=== PATIENT | female | born 1985 | race Caucasian/White ===

== ENCOUNTER 2018-10-08 09:51 | Emergency (ER) ==
[2018-10-08 10:02] VITALS: BP 144/79; TEMP 101.3; BMI 28.1
--- NOTE | 2018-10-08 10:10 | ED.PDOC ---
General ED Provider: Dr. MESSI KUMAR Chief Complaint: Respiratory Complaint Stated Complaint: Started with cough 3 weeks ago, coughing so hard she would vomit. fever and diarrhea. Earaches and headaches and body aches and sore throat Time Seen by Physician: 10:05 Mode of Arrival: Walk-In Information Source: Patient Exam Limitations: No limitations Referred to ED by: Other (family) Nursing and Triage Documentation Reviewed and Agree: Yes Does patient meet sepsis criteria?: No System Inflammatory Response Syndrome: Not Applicable Sepsis Protocol: For patient's 13 years and over: Temp is 96.8 and below OR 101 and greater Pulse >90 BPM Resp >20/minute Acutely Altered Mental Status Are patient's symptoms suggestive of a new infection, such as: -Pneumonia -Skin, Soft Tissue -Endocarditis -UTI -Bone, Joint Infection -Implantable Device -Acute Abdominal Infection -Wound Infection -Meningitis -Blood Stream Catheter Infection -Unknown Respiratory Complaint Exam - Respiratory Complaint/Exam Onset/Duration: 3 days Symptoms Are: Still present, Worse Timing: Intermittent Initial Severity: Mild Current Severity: Moderate Location: Nose, Throat, Chest Character: Reports: Productive cough (scanty yellow sputum production ) Aggravating: Reports: URI Alleviating: Reports: None Associated Signs and Symptoms: Reports: URI, Nasal congestion, Sore throat, Decreased oral intake Related History: Denies: Similar episode History of Healthcare-Acquired Pneumonia: No Related Surgical History: Reports: None Pulmonary Embolism Risk Factors: None Cardiac Risk Factors: Reports: None Pseudomonas Risk Factors: Reports: None Tuberculosis Risk Factors: Reports: None Status Asthmaticus Risk Factors: Reports: None Home Oxygen Use: No Recent Stress Test: No Recent Echo/LV Function: No Current Antibiotic Use: No Current Asthma Medication Use: Yes Respiratory Distress: None Inadequate Respiratory Effort: No Dysphagia Present: No Stridor Present: No JVD Present: No Accessory Muscle Use: No Retractions: Not Present Diminished Breath Sounds: No Sinus Tenderness: None Grunting Respirations: No Kussmaul Respirations: No Differential Diagnoses: URI, Influenza, Other Quality Indicators For Pneumonia: SpO2 assessed Review of Systems - Review Of Systems Constitutional: Reports: Malaise Eyes: Reports: No symptoms Ears, Nose, Mouth, Throat: Reports: Ear pain, Throat pain Respiratory: Reports: No symptoms Cardiac: Reports: No symptoms GI: Reports: No symptoms : Reports: No symptoms Musculoskeletal: Reports: No symptoms Skin: Reports: No symptoms Neurological: Reports: No symptoms Endocrine: Reports: No symptoms Hematologic/Lymphatic: Reports: No symptoms All Other Systems: Reviewed and Negative Past Medical History - Past Medical History Previously Healthy: Yes Endocrine: Reports: None Cardiovascular: Reports: None Respiratory: Reports: None Hematological: Reports: None Gastrointestinal: Reports: None Genitourinary: Reports: None Neuro/Psych: Reports: None Musculoskeletal: Reports: None Cancer: Reports: None Last Menstrual Period: 1 day ago. Has IUD in place -No chance of - Surgical History General Surgical History: Reports: None - Family History Family History: Reports: None - Social History Smoking Status: Current every day smoker, Light tobacco smoker Hx Substance Use: No Alcohol Screening: None Physical Exam - Physical Exam Appearance: Ill-appearing, No pain distress, Well-nourished Ill-appearing: Mild Pain Distress: None Eyes: MORRO, EOMI, Conjunctiva clear ENT: Ears normal, Nose normal, Oropharynx normal, Erythema Respiratory: Airway patent, Breath sounds clear, Breath sounds equal, Respirations nonlabored Cardiovascular: RRR, Pulses normal, No rub, No murmur GI/: Soft, Nontender, No masses, Bowel sounds normal, No Organomegaly Musculoskeletal: Normal strength, ROM intact, No edema, No calf tenderness Skin: Warm, Dry, Normal color Neurological: Sensation intact, Motor intact, Reflexes intact, Cranial nerves intact, Alert, Oriented Psychiatric: Affect appropriate, Mood appropriate Critical Care Note - Critical Care Note Total Time (mins): 0 Course - Course Hematology/Chemistry: 10/08/18 10:50 10/08/18 10:50 Orders, Labs, Meds: Lab Review 10/08/18 10/08/18 10/08/18 10:20 10:50 10:50 WBC 9.51 RBC 4.59 Hgb 14.1 Hct 41.0 MCV 89.3 MCH 30.7 MCHC 34.4 RDW Coeff of Yasmeen 12.6 Plt Count 205 Immature Gran % (Auto) 0.3 Neut % (Auto) 80.5 Lymph % (Auto) 12.8 [place] % (Auto) 5.5 Eos % (Auto) 0.7 Baso % (Auto) 0.2 Immature Gran # (Auto) 0.0 Neut # (Auto) 7.7 H Lymph # (Auto) 1.2 [place] # (Auto) 0.5 Eos # (Auto) 0.1 Baso # (Auto) 0.0 Sodium 138.9 Potassium 3.65 Chloride 103.4 Carbon Dioxide 25.4 Anion Gap 13.75 BUN 10.6 Creatinine 0.62 Estimated GFR (MDRD) 112.00 BUN/Creatinine Ratio 17.09 Glucose 134.6 H Calcium 8.92 Total Bilirubin 0.47 AST 21.5 ALT 17.4 Alkaline Phosphatase 63.7 Total Protein 8.06 Albumin 4.80 Globulin 3.26 Albumin/Globulin Ratio 1.47 Amylase 62.2 Lipase 53.8 Urine Color Urine Clarity Urine pH Ur Specific [place] Urine Protein Urine Glucose (UA) Urine Ketones Urine Blood Urine Nitrite Urine Bilirubin Urine Urobilinogen Ur Leukocyte Esterase Urine Microscopic RBC Ur Squamous Epith Cells Urine Starch Urine Mucus Influ A Molecular Assay Negative by naat Influ B Molecular Assay Negative by naat 10/08/18 10:55 WBC RBC Hgb Hct MCV MCH MCHC RDW Coeff of Yasmeen Plt Count Immature Gran % (Auto) Neut % (Auto) Lymph % (Auto) [place] % (Auto) Eos % (Auto) Baso % (Auto) Immature Gran # (Auto) Neut # (Auto) Lymph # (Auto) [place] # (Auto) Eos # (Auto) Baso # (Auto) Sodium Potassium Chloride Carbon Dioxide Anion Gap BUN Creatinine Estimated GFR (MDRD) BUN/Creatinine Ratio Glucose Calcium Total Bilirubin AST ALT Alkaline Phosphatase Total Protein Albumin Globulin Albumin/Globulin Ratio Amylase Lipase Urine Color Yellow Urine Clarity Clear Urine pH 6.0 Ur Specific [place] 1.020 Urine Protein 1+ Urine Glucose (UA) Negative Urine Ketones 2+ Urine Blood 3+ Urine Nitrite Negative Urine Bilirubin Negative Urine Urobilinogen 0.2 Ur Leukocyte Esterase Negative Urine Microscopic RBC 2-5 Ur Squamous Epith Cells 5-10 Urine Starch 1+ Urine Mucus 1+ Influ A Molecular Assay Influ B Molecular Assay Orders Category Date Time Status AMYLASE Stat LAB 10/08/18 10:50 Completed CBC W/ AUTO DIFF Stat LAB 10/08/18 10:50 Completed CMP [COMPREHENSIVE METABOLIC PANEL] Stat LAB 10/08/18 10:50 Completed FLU A & B MOLECULAR [FLU A/B MOLECULAR] Stat LAB 10/08/18 10:20 Completed LIPASE Stat LAB 10/08/18 10:50 Completed RAPID STREP SCREEN [MOLECULAR GROUP A STREP] Stat LAB 10/08/18 10:20 Completed UA [URINALYSIS C & S IF INDICATED] Stat LAB 10/08/18 10:55 Completed CHEST, 2 VIEWS PA & LAT Stat RADS 10/08/18 10:[address] ABDOMEN/PELVIS WO CONTRAST Stat RADS 10/08/18 10:26 Completed Vital Signs: Temp Pulse Resp BP Pulse Ox 10/08/18 09:57 101.3 F H 106 H 20 144/79 H 97 Departure - Departure Time of Disposition: 11:50 Disposition: HOME SELF-CARE Discharge Problem: URI (upper respiratory infection) Instructions: Upper Respiratory Infection (ED) Condition: Good Pt referred to PMD for follow-up: Yes (1 wk) IPMP verified?: No Additional Instructions: Stay well hydrated and follow up with pcp if not resolved in 5 days Take over the counter cough and cold med Take Tylenol or advil for body aches or fever (T above 101 degrees) If symptoms worsen or [place] temp elevation non responsive meds return to ER Allergies/Adverse Reactions: Allergies No Known Allergies Allergy (Verified 10/08/18 10:02) Home Medications: Ambulatory Orders 1 [No Reported Medications] 10/08/18 Disposition Discussed With: Patient
--- NOTE | 2018-10-08 11:06 | DI ---
EXAM: Chest two views HISTORY: Cough COMPARISON: 09/10/2017 TECHNIQUE: Two views of the chest were performed FINDINGS: The lungs are clear. There is no pleural effusion or pneumothorax. The heart is normal i n size. The mediastinal contour is normal. There are no acute abnormalities of the bones. IMPRESSION: No acute cardiopulmonary process.
--- NOTE | 2018-10-08 11:17 | CT ---
EXAM: CT ABDOMEN AND PELVIS HISTORY: Lower abdominal pain, diarrhea and vomiting TECHNIQUE: CT abdomen and pelvis without intravenous contrast. Images were reconstructed using 5 mm section thickness. Reformations were prepared. COMPARISON: None FINDINGS: Diagnostic limitations may exist without including contrast enhanced images. The liver and spleen ap pear normal. Gallbladder, pancreas and adrenal glands appear normal. Each kidney has a few punctate calcifications suggesting nephrolithiasis. There is no hydronephrosis or evidence of ureteral obstr uction. Normal abdominal aorta. Stomach is mildly distended with food product, air and fluid. No appendix is seen. Bowel gas patter n is unremarkable. Intrauterine device is noted in the central uterus. Urinary bladder is normal. There is no ascites or inflammatory infiltration of the abdominal fat. No ventral hernia. 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 Lung bases are clear. There is no pneumoperitoneum. IMPRESSION: 1. Stomach is mildly distended with food product, fluid and air, nonspecific although consider gastr itis or gastroparesis versus ileus. Bowel gas pattern is normal. There is no ascites or free air. 2. Punctate bilateral renal calculi with no hydronephrosis. 3. Intrauterine device in place. 4. Pars defects at L5 without listhesis.
== END 2018-10-08 12:12 | disposition home or self-care (01) ==
LOC: ED 09:51
DX: J06.9 Acute upper respiratory infection, unspecified (principal); F17.210 Nicotine dependence, cigarettes, uncomplicated
CPT/HCPCS: 36415; 80053; 81001; 82150; 83690; 85025; 87502; 87651; 99283